=== PATIENT | female | born 1950 | race Caucasian/White ===

== ENCOUNTER 2016-08-21 08:54 | Outpatient (CLI) | payer MEDICARE ==
[2016-08-21 09:21] LABS: BASOPHILS # (AUTO) 0.1 10^3/uL (0.0-0.1); EOSINOPHILS # (AUTO) 0.5 10^3/uL (0.0-0.7); EOSINOPHILS % (AUTO) 7.3 %; HCT - HEMATOCRIT 39.4 % (37.0-47.0); HGB - HEMOGLOBIN 13.1 g/dL (12.0-16.0); LYMPHOCYTES # (AUTO) 2.2 10^3/uL (1.5-3.5); LYMPHOCYTES % (AUTO) 34.5 %; MEAN CORPUSCULAR HEMOGLOBIN 29.8 pg (27.0-31.0); MEAN CORPUSCULAR HGB CONC 33.3 g/dL (32.0-36.0); MEAN CORPUSCULAR VOLUME 89.6 fL (81.0-99.0); MEAN PLATELET VOLUME 8.6 fL (7.9-10.8); MONOCYTES # (AUTO) 0.6 10^3/uL (0.0-1.0); MONOCYTES % (AUTO) 9.3 %; NEUTROPHILS % (AUTO) 47.9 %; RED BLOOD COUNT 4.39 10^6/uL (4.20-5.40); RED CELL DISTRIBUTION WIDTH 13.1 % (12.0-15.0); UNCORRECTED WHITE BLOOD COUNT 6.3 x10^3/uL; WHITE BLOOD COUNT 6.3 x10^3/uL (4.8-10.8)
[2016-08-21 09:41] LABS: ALBUMIN/GLOBULIN RATIO 1.6 (1.0-2.2); BILIRUBIN,TOTAL 0.6 mg/dL (0.2-1.0); BUN - BLOOD UREA NITROGEN 12 mg/dL (6-20); CALCIUM 8.7 mg/dL (8.5-10.3); CARBON DIOXIDE - CO2 30 mmol/L (21-32); CHLORIDE 103 mmol/L (101-111); CHOL/HDL RATIO 3.2 (<4.4); CHOLESTEROL 210 mg/dL; CREATININE 0.7 mg/dL (0.4-1.0); GFR - MDRD 84 (>89); GLUCOSE 98 mg/dL (70-100); HDL CHOLESTEROL 65 mg/dL; LDL/HDL RATIO 1.8 (<4.4); POTASSIUM 4.2 mmol/L (3.5-5.0); SODIUM 139 mmol/L (135-145); TOTAL PROTEIN 6.4 g/dL (6.7-8.2); TRIGLYCERIDES 129 mg/dL; VLDL CHOLESTEROL 26 mg/dL
== END 2016-08-21 08:55 | disposition home or self-care (01) ==
LOC: LAB 08:54
PROVIDERS: ATTEND Nurse Practitioner Family
DX: E78.5 Hyperlipidemia, unspecified (principal); F41.8 Other specified anxiety disorders; G47.00 Insomnia, unspecified
CPT/HCPCS: 36415; 80053; 80061; 84443; 85025

== ENCOUNTER 2016-09-07 08:00 | Outpatient (CLI) | payer MEDICARE | END 2016-09-07 23:59 | disposition home or self-care (01) | DX: Z12.11 Encounter for screening for malignant neoplasm of colon (principal) ==

== ENCOUNTER 2016-09-17 09:59 | Outpatient (CLI) | payer MEDICARE | END 2016-09-17 10:00 | disposition home or self-care (01) | DX: Z13.820 Encounter for screening for osteoporosis (principal); Z78.0 Asymptomatic menopausal state; M85.88 Other specified disorders of bone density and structure, other site ==

== ENCOUNTER 2016-11-26 10:12 | Outpatient (CLI) | payer MEDICARE ==
--- NOTE | 2016-11-27 16:04 | Mammography Report ---
DIGITAL SCREENING MAMMOGRAM: 11/26/2016 CLINICAL INDICATION: A 66-year-old nulliparous patient, for screening. COMPARISON: 08/2015, 01/2013, 08/2008. TECHNIQUE: Routine CC and MLO projections were obtained of the breasts. FINDINGS: Scattered fibroglandular tissue is present within the breasts. There are no dominant marlin s, suspicious microcalcifications, or secondary signs of malignancy. In comparison to the previous st udies, there are no significant changes. ASSESSMENT: NO MAMMOGRAPHIC EVIDENCE OF MALIGNANCY. NO SIGNIFICANT INTERVAL CHANGES. RECOMMENDATION: Screening mammography is recommended annually. BIRADS category 1 - negative. STANDARD QUALIFYING STATEMENTS 1. This examination was reviewed with the aid of Computed-Aided Detection (CAD). 2. A negative or benign imaging report should not delay biopsy if clinically suspicious findings are present. Consider surgical consultation if warranted. More than 5% of cancers are not identified by i maging. 3. Dense breasts may obscure an underlying neoplasm. JOB #: [id number] EXT JOB #:[id number]
== END 2016-11-26 10:13 | disposition home or self-care (01) ==
LOC: DI 10:12
PROVIDERS: ATTEND Nurse Practitioner Family
DX: Z12.31 Encounter for screening mammogram for malignant neoplasm of breast (principal)
CPT/HCPCS: 77067

== ENCOUNTER 2017-08-31 08:07 | Outpatient (CLI) | payer MEDICARE ==
[2017-08-31 09:08] LABS: CHOL/HDL RATIO 2.7 (<4.4); CHOLESTEROL 230 mg/dL; HDL CHOLESTEROL 84 mg/dL; LDL CHOLESTEROL,CALCULATED 131 mg/dL; LDL/HDL RATIO 1.6 (<4.4); VLDL CHOLESTEROL 15 mg/dL
== END 2017-08-31 08:08 | disposition home or self-care (01) ==
LOC: LAB 08:07
PROVIDERS: ATTEND Nurse Practitioner Family
DX: E78.5 Hyperlipidemia, unspecified (principal)
CPT/HCPCS: 36415; 80061; 83721

== ENCOUNTER 2021-09-11 11:18 | Outpatient (CLI) | payer MEDICARE ==
--- NOTE | 2021-09-11 16:08 | XRAY Report ---
PROCEDURE: Shoulder 3 View LT INDICATIONS: PAIN IN LEFT SHOULDER JOINT TECHNIQUE: 3 views of the shoulder were acquired. COMPARISON: None. FINDINGS: Bones: No fractures or dislocations. Subtle lucencies in humeral head and neck. Moderate acromioclav icular and mild glenohumeral joint degeneration. Visualized ribs appear intact. Soft tissues: No suspicious soft tissue calcifications. IMPRESSION: 1. Moderate degenerative joint disease. 2. Subtle lucencies of the humeral head and neck, uncertain clinical significance. In a patient witho ut personal history of cancer, the finding could be related to osteoporosis. If there is personal his tory of cancer, metastatic disease is a differential diagnosis. If clinically indicated, a whole-body bone scan may be helpful. Reviewed by: Werner Pierre MD on 09/11/2021 4:06 PM PST Approved by: Werner Pierre MD on 09/11/2021 4:06 PM PST Station ID: [id number]
--- NOTE | 2021-09-11 16:51 | XRAY Report ---
PROCEDURE: Cervical Spine 2 View INDICATIONS: PAIN IN LEFT SHOULDER TECHNIQUE: 3 view(s) of the cervical spine were acquired. COMPARISON: None. FINDINGS: Bones: No fractures or dislocations to the T1 level. The lateral masses of C1 appear intact on the odontoid view. No suspicious bony lesions. Moderate to severe cervical spondylitic change. Multilev el facet arthropathy. Multilevel uncovertebral joint hypertrophy. Soft tissues: No prevertebral soft tissue swelling. IMPRESSION: Cervical spondylitic change. No evidence acute bony abnormality of the cervical spine. If clinical suspicion and/or symptoms persist, further assessment with advanced imaging (e.g., CT, MR I, or bone scan) may be helpful for further assessment. Reviewed by: Galdino Rodriguez MD on 09/11/2021 4:50 PM [facility] Approved by: Galdino Rodriguez MD on 09/11/2021 4:50 PM [facility] Station ID: [id number]
== END 2021-09-11 23:59 | disposition home or self-care (01) ==
LOC: DI 11:18
PROVIDERS: ATTEND Nurse Practitioner Family
DX: M47.812 Spondylosis without myelopathy or radiculopathy, cervical region (principal); M19.012 Primary osteoarthritis, left shoulder; R93.6 Abnormal findings on diagnostic imaging of limbs

== ENCOUNTER 2021-10-30 12:44 | Outpatient (CLI) | payer MEDICARE ==
--- NOTE | 2021-10-30 16:37 | DEXA Report ---
PROCEDURE: Dexa Spine and/or Hip INDICATIONS: POST MENOPAUSAL TECHNIQUE: Dual energy x-ray absorptiometry (DXA) was performed on a [employer] System. Regions measur ed are the AP Spine, femoral neck, and if needed forearm. COMPARISON: 09/17. FINDINGS: Lumbar Spine: Bone Mineral Density 1.26 on g/cm/cm,T score 0.7, normal Left Hip: Bone Mineral Density 0.675 g/cm/cm,T score -2.6, osteoporosis Left Femoral Neck: Bone Mineral Density 0.682 g/cm/cm, T score -2.6, osteoporosis (T score greater or equal to -1.0: NORMAL) (T score from -1.1 to -2.4: OSTEOPENIA) (T score less than or equal to -2.5 to: OSTEOPOROSIS) Impression: Osteoporosis. Bone density is decreased 7.7% interval since prior exam obtained 09/17/2016. Patients with diagnosis of osteoporosis or osteopenia should have regular bone mineral density assess ment. For those eligible for Medicare, routine testing is allowed once every 2 years. Testing frequ ency can be increased for patients who have rapidly progressing disease or for those who are receivin g medical therapy to restore bone mass. Reviewed by: Brandi Morales MD, PhD on 10/30/2021 4:36 PM PDT Approved by: Brandi Morales MD, PhD on 10/30/2021 4:36 PM PDT Station ID: [id number]
== END 2021-10-30 12:45 | disposition home or self-care (01) ==
LOC: DI 12:44
PROVIDERS: ATTEND Nurse Practitioner Family
DX: Z78.0 Asymptomatic menopausal state (principal); M81.0 Age-related osteoporosis without current pathological fracture

== ENCOUNTER 2021-11-17 07:30 | Outpatient (CLI) | payer MEDICARE ==
[2021-11-17 08:08] LABS: ALBUMIN 4.5 g/dL (3.2-5.5); ALBUMIN/GLOBULIN RATIO 1.7 (1.0-2.2); ALKALINE PHOSPHATASE 53 IU/L (42-121); ALT ALANINE AMINOTRANSFERASE 12 IU/L (10-60); AST ASPARTATE AMINOTRANSFERASE 15 IU/L (10-42); BILIRUBIN,TOTAL 0.9 mg/dL (0.2-1.0); BUN - BLOOD UREA NITROGEN 15 mg/dL (6-20); CALCIUM 9.1 mg/dL (8.5-10.3); CARBON DIOXIDE - CO2 26 mmol/L (21-32); CHLORIDE 106 mmol/L (101-111); CHOL/HDL RATIO 3.1 (<4.4); CHOLESTEROL 280 mg/dL; CREATININE 0.7 mg/dL (0.4-1.0); GFR - MDRD 83 (>89); GLUCOSE 92 mg/dL (70-100); HDL CHOLESTEROL 90 mg/dL; LDL CHOLESTEROL,CALCULATED 172 mg/dL; LDL/HDL RATIO 1.9 (<4.4); POTASSIUM 3.8 mmol/L (3.5-5.0); SODIUM 141 mmol/L (135-145); TOTAL PROTEIN 7.1 g/dL (6.7-8.2); TRIGLYCERIDES 89 mg/dL; VLDL CHOLESTEROL 18 mg/dL
[2021-11-18 10:55] LABS: HCV AB 0.2 s/co ratio (0.0-0.9)
== END 2021-11-17 07:31 | disposition home or self-care (01) ==
LOC: LAB 07:30
PROVIDERS: ATTEND Nurse Practitioner Family
DX: M81.0 Age-related osteoporosis without current pathological fracture (principal); Z11.59 Encounter for screening for other viral diseases; Z13.220 Encounter for screening for lipoid disorders; Z13.1 Encounter for screening for diabetes mellitus
CPT/HCPCS: 36415; 80053; 80061; 82306; 83721; 83970; 86803

== ENCOUNTER 2023-03-01 13:48 | Outpatient (CLI) | payer MEDICARE ==
--- NOTE | 2023-03-01 17:23 | Ultrasound Report ---
PROCEDURE: Carotid Doppler Complete INDICATIONS: PULSATILE TINNITUS TECHNIQUE: Color and pulse Doppler interrogation was performed of both carotid systems, with image documentation and velocity measurements. COMPARISON: None. FINDINGS: Right side: Brachial blood pressure: 162/82 mm Hg. Common carotid artery peak systolic velocity: 63.4 cm/sec. Internal carotid artery peak systolic velocity: 80.2 cm/sec. Internal carotid artery end diastolic velocity: 29.8 cm/sec. External carotid artery peak systolic velocity: 95.4 cm/sec. ICA/CCA peak systolic ratio: 1.3 . Hernandez scale imaging description: No significant atherosclerotic plaque. Percent internal carotid artery stenosis: No stenosis. Vertebral artery: Flow direction is antegrade. Left side: Brachial blood pressure: 160/85 mm Hg. Common carotid artery peak systolic velocity: 67.5 cm/sec. Internal carotid artery peak systolic velocity: 148.5 cm/sec. Internal carotid artery end diastolic velocity: 29.9 cm/sec. External carotid artery peak systolic velocity: 72.7 cm/sec. ICA/CCA peak systolic ratio: 2.2 . Hernandez scale imaging description: Plaque is present. By systolic velocity criteria, there is a modera te stenosis of between 50-69%. However, by ultrasound grayscale imaging, stenosis is likely no more t [place] 50% Percent internal carotid artery stenosis: 50-69%. Vertebral artery: Flow direction is antegrade. IMPRESSION: 1. In the right internal carotid artery, there is no stenosis based on peak systolic velocity criteri a. 2. In the left internal carotid artery, there is 50-69% stenosis based on peak systolic velocity crit eria. 3. Antegrade blood flow within the right vertebral artery. 4. Antegrade blood flow within the left vertebral artery. The estimate of stenosis included in the report of the imaging study was calculated using the [facility]-end orsed standards of carotid artery stenosis. Reviewed by: Galdino Rodriguez MD on 03/01/2023 5:22 PM PDT Approved by: Galdino Rodriguez MD on 03/01/2023 5:22 PM PDT Station ID: [id number]
== END 2023-03-01 13:49 | disposition home or self-care (01) ==
LOC: DI 13:48
PROVIDERS: ATTEND Nurse Practitioner Family
DX: I65.22 Occlusion and stenosis of left carotid artery (principal); H93.19 Tinnitus, unspecified ear
CPT/HCPCS: 93880

== ENCOUNTER 2024-03-23 09:52 | Outpatient (CLI) | payer MEDICARE ==
--- NOTE | 2024-03-23 15:31 | DEXA Report ---
PROCEDURE: Dexa Spine and/or Hip INDICATIONS: OSTEOPORSIS TECHNIQUE: Dual energy x-ray absorptiometry (DXA) was performed on a [employer] System. Regions measur ed are the AP Spine, femoral neck, and if needed forearm. COMPARISON: 10/30/2021 FINDINGS: Lumbar Spine: Bone Mineral Density: 1.320 g/cm/cm,T score: 1.2. Normal, change from previous 4.3%, significant Left Femoral Neck: Bone Mineral Density: 0.677 g/cm/cm, T score: -2.6, osteoporosis. Left Hip: Bone Mineral Density: 0.657 g/cm/cm,T score: -2.8, osteoporosis. Change from previous -2.7% Fractures or not given due to osteoporosis. (T score greater or equal to -1.0: NORMAL) (T score from -1.1 to -2.4: OSTEOPENIA) (T score less than or equal to -2.5 to: OSTEOPOROSIS) Impression: By WHO criteria, this patient has osteoporosis. Interval significant increase in bone mineral density of the lumbar spine. No significant interval ch juancarlos in bone mineral density of the hip. Patients with diagnosis of osteoporosis or osteopenia should have regular bone mineral density assess ment. For those eligible for Medicare, routine testing is allowed once every 2 years. Testing frequ ency can be increased for patients who have rapidly progressing disease or for those who are receivin g medical therapy to restore bone mass. Reviewed by: Ledy Palma MD on 03/23/2024 3:30 PM PDT Approved by: Ledy Palma MD on 03/23/2024 3:30 PM PDT Station ID: [id number]
== END 2024-03-23 09:53 | disposition home or self-care (01) ==
LOC: DI 09:52
PROVIDERS: ATTEND Registered Nurse
DX: M81.0 Age-related osteoporosis without current pathological fracture (principal)